=== PATIENT | female | born 1965 | race Two or more races ===

== ENCOUNTER 2019-07-18 06:39 | Emergency (ER) | payer SELFPAY ==
[~2019-07-18] VITALS: Ht 170.2 cm; Wt 61.2 kg
--- NOTE | 2019-07-18 06:42 | NUR ---
ED Nurse Note: pt left before being seen. Per EMS, she was at [facility] earlier this AM for her bipolar disorder but "did not like the way she was being treated" so she left and went back to her hotel where she called an ambulance that brought her here. In triage pt did not want to answer traige questions. pt was brought to room then walked out before the primary nurse or physician could assess her. ERMD is aware
--- NOTE | 2019-07-18 06:46 | NUR ---
ER Nurse Note: Pt walked out before being seen by nurse and MD. EMS at triage bay and pt walked out with EMS. Pt yelled "I am out of here. This is not my hospital and I do not want to be treated here". MD aware.
[2019-07-18 06:52] VITALS: BP 124/84
== END 2019-07-18 07:15 | disposition left against medical advice (07) ==
LOC: EDBD 06:39 → EMR 07:03
DX: F43.9 Reaction to severe stress, unspecified (principal); Z53.21 Procedure and treatment not carried out due to patient leaving prior to being seen by health care provider